=== PATIENT | female | born 1980 | race Caucasian/White ===

== ENCOUNTER 2016-10-25 08:04 | Emergency (ER) | payer OTHER ==
[~2016-10-25] VITALS: Ht 160 cm; Wt 113.0 kg
[~2016-10-25 08:04] MED LIST: ATOR40TA68 PO; IBUP-1542 PO; INSU100C SQ; LANT3I SC; MTF1000T PO
[2016-10-25 08:06] VITALS: Ht 160 cm; Wt 113.0 kg
--- NOTE | 2016-10-25 09:06 | RADRPT ---
PROCEDURE: XR Chest. CLINICAL INDICATION: Cough TECHNIQUE: A single portable view of the chest was obtained. COMPARISON: 07/29/2016 FINDINGS: The cardiomediastinal silhouette is within normal limits. The right hemidiaphragm is elevated with p robable right lower lobe atelectasis. The remaining lungs and pleural spaces are clear. The soft ti ssues and osseous structures are unremarkable. IMPRESSION: No acute cardiopulmonary disease. Elevated right hemidiaphragm with probable right lower lobe atelectasis. RPTAT: HPNM Physician Roxanne Date Time Electronically viewed and signed by Physician Roxanne on 10/25/2016 09:06 /
[2016-10-25] MEDS ORDERED: BENZ100C70 PO (09:19)
[2016-10-25] MEDS ORDERED: ALBU8.5H3 INH (09:19)
[2016-10-25] MEDS ORDERED: NPH10OT LEFT EAR (09:33)
--- NOTE | 2016-10-25 09:43 | ERD ---
ER Documentation Chief Complaint Date/Time DATE: 10/25/16 TIME: 09:35 Chief Complaint pt bib family with c/o cough and congestion with ear pain x 3 days HPI 36 year old female with a past medical history of diabetes and hypertension presents to the ED for a cough and sore throat that started 3 days ago. Patient also reports that she has been taking benazepril since 1 month ago. States that she did follow-up with her family doctor at [facility] and they stated that it is likely due to viral etiology. Reports that when she starts having her dry cough, it hurts her chest. States that she also has left ear pain. Denies any use of Q-tips. States that her blood sugar today was 124. Denies any chest pain, shortness of breath, wheezing, abdominal pain, nausea, vomiting. States that she takes insulin, metformin, Zoloft. ROS All systems reviewed and are negative except as per history of present illness. Medications Home Meds Active Scripts Neomycin/Polymyxin/Hydrocort* (Cortisporin* Otic) 10 Ml Susp, 4 DROP LEFT EAR QID for 7 Days, EA Prov:MERCEDES LU PA-C 10/25/16 Benzonatate* (Tessalon Perle*) 100 Mg Capsule, 100 MG PO Q8H Y for COUGH, #20 CAP Prov:MERCEDES LU PA-C 10/25/16 Albuterol Sulfate* (Proair HFA*) 8.5 Gm Hfa.aer.ad, 2 PUFF INH Q4, #1 INHALER Prov:MERCEDES LU PA-C 10/25/16 Ibuprofen* (Motrin*) 600 Mg Tab, 600 MG PO Q8, #30 TAB Prov:ANTHONY MONTAGUE DO 07/29/16 Reported Medications Insulin Lispro (Humalog) 100 Unit/1 Ml Cartridge, 40 UNIT SQ AC BREAKFAST 07/29/16 Insulin Glargine* (Lantus*) 100 Unit/Ml Soln, 45 UNIT SC QPM, #1 VIAL 07/29/16 Atorvastatin* (Atorvastatin*) 40 Mg Tablet, 40 MG PO QHS, #90 01/10/16 Metformin* (Glucophage*) 1,000 Mg Tablet, 1000 MG PO BID 04/23/13 Allergies Allergies: Coded Allergies: No Known Allergy (Verified , 07/29/16) PMhx/Soc History of Surgery: Yes (hysterectomy) Anesthesia Reaction: No Hx Neurological Disorder: No Hx Respiratory Disorders: No Hx Cardiac Disorders: Yes (diabetes) Hx Psychiatric Problems: Yes (anxiety) Hx Miscellaneous Medical Probl: No Hx Alcohol Use: No Hx Substance Use: No Hx Tobacco Use: No Physical Exam Vitals Vital Signs Date Time Temp Pulse Resp B/P Pulse Ox O2 Delivery O2 Flow Rate FiO2 10/25/16 08:06 98.3 72 16 128/88 98 Physical Exam Const: [id number], well-nourished. In no acute distress. Head: Atraumatic, normocephalic Eyes: Normal Conjunctiva without injection. No purulent discharge. PERRL. EOMI ENT: Normal external ear. Ear canal without erythema. Tympanic membrane pearly field without effusion or bulging. Nasal canal clear with normal turbinates. Moist oropharynx without tonsillar exudates. Non-erythematous pharynx. Uvula midline. No drooling. No trismus. Neck: Full range of motion. No meningismus. No cervical lymphadenopathy. Resp: Clear to auscultation bilaterally. No wheezing, rhonchi, rales, or crackles. No accessory muscle use. No retractions. Cardio: Regular rate and rhythm. No murmurs, rubs or gallops. Abd: Soft, non tender, non distended. Normal bowel sounds. No palpable masses. No rebound tenderness. No guarding. Skin: No petechiae or rashes Back: No midline tenderness. No CVA tenderness. Ext: No cyanosis, or edema. Neur: Awake and alert. Psych: Normal Mood and Affect Procedures/MDM This is a 36-year-old female with a past medical history of hypertension, diabetes, depression presents to the ED complaining of left ear pain, sore throat, dry cough. Patient is afebrile and nontoxic-appearing. Patient has normal vital signs. A chest x-ray was ordered to further evaluate patient. PROCEDURE: XR Chest. CLINICAL INDICATION: Cough TECHNIQUE: A single portable view of the chest was obtained. COMPARISON: 07/29/2016 FINDINGS: The cardiomediastinal silhouette is within normal limits. The right hemidiaphragm is elevated with probable right lower lobe atelectasis. The remaining lungs and pleural spaces are clear. The soft tissues and osseous structures are unremarkable. IMPRESSION: No acute cardiopulmonary disease. Elevated right hemidiaphragm with probable right lower lobe atelectasis. This patient presents to the ED with symptoms consistent with a viral acute upper respiratory infection. Patient is afebrile and has normal vital signs. Patient's physical exam include lungs which were clear to auscultation and a normal pulse oximetry. There is a low suspicion for pneumonia, pneumothorax, pulmonary embolism, epiglottitis, viral/strep pharyngitis, sinusitis, peritonsillar abscess, mastoiditis, retropharyngeal abscess, meningitis, sepsis , acute abdomen or other emergent conditions. Fluids, rest, and symptomatic treatment are recommended for the management of patient's symptoms. Patient's physical exam is consistent with otitis externa based on the tenderness to palpation of the left tragus. No purulent discharge noted. Tympanic membrane is pearly field with no signs of erythema, bulging or decreased light reflex. Patient does not have tenderness to palpation of tragus or mastoid. Low suspicion for otitis externa or mastoiditis. Patient's physical exam include lungs which were clear to auscultation and a normal pulse oximetry. Patient is speaking in full sentences. There is a low suspicion for pneumonia, epiglottitis , croup, viral/strep pharyngitis, sinusitis, peritonsillar abscess, retropharyngeal abscess, meningitis, sepsis, acute abdomen or other emergent conditions. Discharge medications: Cortisporin, Tessalon Perles, Pro-air Patient was instructed to return to the ED for any new or worsening symptoms. They should otherwise follow up with the primary care provider within 1-2 days. The patient's questions were answered at the time of discharge. Patient understood and agreed with discharge management. Departure Diagnosis: Primary Impression: Cough Additional Impression: Ear pain, left Condition: Stable Patient Instructions: Taking AYESHA Inhibitors, Uri, Viral, No Abx (Adult), External Ear Infection (Adult) Referrals: COMMUNITY CLINICS YOU HAVE RECEIVED A MEDICAL SCREENING EXAM AND THE RESULTS INDICATE THAT YOU DO NOT HAVE A CONDITION THAT REQUIRES URGENT TREATMENT IN THE EMERGENCY DEPARTMENT. FURTHER EVALUATION AND TREATMENT OF YOUR CONDITION CAN WAIT UNTIL YOU ARE SEEN IN YOUR DOCTORS OFFICE WITHIN THE NEXT 1-2 DAYS. IT IS YOUR RESPONSIBILITY TO MAKE AN APPOINTMENT FOR FOLOW-UP CARE. IF YOU HAVE A PRIMARY DOCTOR --you should call your primary doctor and schedule an appointment IF YOU DO NOT HAVE A PRIMARY DOCTOR YOU CAN CALL OUR PHYSICIAN REFERRAL HOTLINE AT IF YOU CAN NOT AFFORD TO SEE A PHYSICIAN YOU CAN CHOSE FROM THE FOLLOWING COMMUNITY [facility] [address] [facility] [address] [facility] [address] [facility] [address] [facility] [address] [facility]. [facility] [address] [facility]. [facility] YOU HAVE RECEIVED A MEDICAL SCREENING EXAM AND THE RESULTS INDICATE THAT YOU DO NOT HAVE A CONDITION THAT REQUIRES URGENT TREATMENT IN THE EMERGENCY DEPARTMENT. FURTHER EVALUATION AND TREATMENT OF YOUR CONDITION CAN WAIT UNTIL YOU ARE SEEN IN YOUR DOCTORS OFFICE WITHIN THE NEXT 1-2 DAYS. IT IS YOUR RESPONSIBILITY TO MAKE AN APPOINTMENT FOR FOLOW-UP CARE. IF YOU HAVE A PRIMARY DOCTOR --you should call your primary doctor and schedule and appointment IF YOU DO NOT HAVE A PRIMARY DOCTOR YOU CAN CALL OUR PHYSICIAN REFERRAL HOTLINE AT . IF YOU CAN NOT AFFORD TO SEE A PHYSICIAN YOU CAN CHOSE FROM THE FOLLOWING [facility]: [facility] [address] [place] [address] [facility] [address] [place] [address] [facility] [address] [place] [address] [facility] URGENT C[facility]/SPECIALTIES Additional Instructions: FOLLOW UP WITH YOUR PRIMARY CARE PHYSICIAN in 2 days for further evaluation for cough and further evaluation to possibly discontinue ayesha inhibitor (Benazapril) . Return to this facility if you are not improving as expected. MERCEDES LU PA-C Oct 25, 2016 09:43
== END 2016-10-25 09:38 | disposition home or self-care (01) ==
LOC: FTE 08:04
DX: R05 Cough (principal); H92.02 Otalgia, left ear; I10 Essential (primary) hypertension; E11.9 Type 2 diabetes mellitus without complications; Z79.4 Long term (current) use of insulin; Z79.84 Long term (current) use of oral hypoglycemic drugs
CPT/HCPCS: 71010

== ENCOUNTER 2017-01-16 15:37 | Emergency (ER) | payer OTHER ==
[~2017-01-16] VITALS: Wt 67.0 kg
[~2017-01-16 15:37] MED LIST changes: +ALBU8.5H3 INH; +BENZ100C70 PO; +NPH10OT LEFT EAR
[2017-01-16] MEDS ORDERED: ONDANSETRON (ODT) 4 MG TAB ODT STA (17:10)
[2017-01-16 17:20] LABS: URINE BLOOD (Dip) POC Negative (NEGATIVE)
[2017-01-16] MEDS ORDERED: HYDROCODONE/APAP (5/325) TAB PO ONE (17:30)
[2017-01-16 17:52] LABS: ADD SCAN DIFF NO
[2017-01-16 17:58] LABS: BASOPHILS % 0.1 % (0.0-2.0); EOSINOPHILS # 0.1 10^3/ul (0.0-0.5); EOSINOPHILS % 0.4 % (0.0-7.0); HEMATOCRIT 41.3 % (37.0-47.0); HEMOGLOBIN 13.5 g/dl (12.0-16.0); LYMPHOCYTES # 3.1 10^3/ul (0.8-2.9); LYMPHOCYTES % 21.2 % (15.0-51.0); MEAN CORPUSCULAR HGB CONC 32.7 g/dl (32.0-37.0); MEAN CORPUSCULAR VOLUME 85.5 fl (82.0-101.0); MEAN PLATELET VOLUME 11.4 fl (7.4-10.4); MONOCYTES % 6.9 % (0.0-11.0); NEUTROPHIL # 10.2 10^3/ul (1.6-7.5); NEUTROPHILS % 70.9 % (39.0-77.0); PLATELET COUNT 285 10^3/UL (140-415); RED BLOOD COUNT 4.83 10^6/ul (4.20-5.40); WHITE BLOOD COUNT 14.4 10^3/ul (4.8-10.8)
[2017-01-16 18:12] LABS: ALBUMIN 4.6 g/dl (3.3-4.9)
[2017-01-16 18:13] LABS: POTASSIUM 3.3 mmol/L (3.5-5.1)
[2017-01-16 18:15] LABS: ALBUMIN/GLOBULIN RATIO 1.21; BILIRUBIN,INDIRECT 0.6 mg/dl (0-1.1); BILIRUBIN,TOTAL 0.6 mg/dl (0.2-1.3); CREATININE 0.55 mg/dl (0.44-1.00); TOTAL PROTEIN 8.4 g/dl (6.1-8.1)
[2017-01-16 18:16] LABS: CALCIUM 9.5 mg/dl (8.4-10.2)
--- NOTE | 2017-01-16 18:58 | ERD ---
ER Documentation Chief Complaint Date/Time DATE: 01/16/17 TIME: 18:55 Chief Complaint ap with vomiting x 2 days HPI This a 36-year-old female who presents the emergency department today complaining of intermittent abdominal pain as well as some nausea and vomiting for the past week. Patient states that one week ago she had abdominal pain that went away and is now returned. States she has a history of diabetes, high blood pressure as well as a hysterectomy 8 years ago for uterine cancer. Denies any dysuria, fevers or chills, vaginal discharge. ROS All systems reviewed and are negative except as per history of present illness. Medications Home Meds Active Scripts Nitrofurantoin Monohyd Macrocr* (Macrobid*) 100 Mg Capsr, 100 MG PO BID for 7 Days, CAP Prov:PIYUSH VILLAVICENCIO PA-C 01/16/17 Ondansetron Hcl* (Zofran*) 4 Mg Tablet, 4 MG PO Q6H for NAUSEA AND/OR VOMITING, #30 TAB Prov:PIYUSH VILLAVICENCIO PA-C 01/16/17 Ibuprofen* (Motrin*) 600 Mg Tab, 600 MG PO Q6, #30 TAB Prov:PROPIYUSH VERGARA PA-C 01/16/17 Hydrocodone/Acetaminophen (Tionesta 5-325 Tablet) 1 Each Tablet, 1 TAB PO Q6H Y for PAIN, #10 TAB Prov:PIYUSH VILLAVICENCIO PA-C 01/16/17 Neomycin/Polymyxin/Hydrocort* (Cortisporin* Otic) 10 Ml Susp, 4 DROP LEFT EAR QID for 7 Days, EA Prov:MERCEDES LU PA-C 10/25/16 Benzonatate* (Tessalon Perle*) 100 Mg Capsule, 100 MG PO Q8H Y for COUGH, #20 CAP Prov:MERCEDES LU PA-C 10/25/16 Albuterol Sulfate* (Proair HFA*) 8.5 Gm Hfa.aer.ad, 2 PUFF INH Q4, #1 INHALER Prov:MERCEDES LU PA-C 10/25/16 Ibuprofen* (Motrin*) 600 Mg Tab, 600 MG PO Q8, #30 TAB Prov:ANTHONY MONTAGUE DO 07/29/16 Reported Medications Insulin Lispro (Humalog) 100 Unit/1 Ml Cartridge, 40 UNIT SQ AC BREAKFAST 07/29/16 Insulin Glargine* (Lantus*) 100 Unit/Ml Soln, 45 UNIT SC QPM, #1 VIAL 07/29/16 Atorvastatin* (Atorvastatin*) 40 Mg Tablet, 40 MG PO QHS, #90 01/10/16 Metformin* (Glucophage*) 1,000 Mg Tablet, 1000 MG PO BID 04/23/13 Allergies Allergies: Coded Allergies: No Known Allergy (Verified , 07/29/16) PMhx/Soc History of Surgery: Yes (hysterectomy) Anesthesia Reaction: No Hx Neurological Disorder: No Hx Respiratory Disorders: No Hx Cardiac Disorders: Yes (diabetes) Hx Psychiatric Problems: Yes (anxiety) Hx Miscellaneous Medical Probl: No Hx Alcohol Use: No Hx Substance Use: No Hx Tobacco Use: No Smoking Status: Never smoker Physical Exam Vitals Vital Signs Date Time Temp Pulse Resp B/P Pulse Ox O2 Delivery O2 Flow Rate FiO2 01/16/17 15:38 97.8 89 18 127/67 99 Physical Exam Const: Obese, no acute distress Head: Atraumatic Eyes: Normal Conjunctiva ENT: Normal External Ears, Nose and Mouth. Neck: Full range of motion..~ No meningismus. Resp: Clear to auscultation bilaterally Cardio: Regular rate and rhythm, no murmurs Abd: Soft, periumbilical and suprapubic tenderness non distended. Normal bowel sounds. No tenderness McBurney's. No left lower quadrant pain. Skin: No petechiae or rashes Back: No midline or flank tenderness. No CVA tenderness. Ext: No cyanosis, or edema Neur: Awake and alert Psych: Normal Mood and Affect Result Diagram: 01/16/17 [id number]/[id number] Results 24 hrs Laboratory Tests Test 01/16/17 17:19 01/16/17 17:21 White Blood Count 14.410^3/ul Red Blood Count 4.8310^6/ul Hemoglobin 13.5g/dl Hematocrit 41.3% Mean Corpuscular Volume 85.5fl Mean Corpuscular Hemoglobin 28.0pg Mean Corpuscular Hemoglobin Concent 32.7g/dl Red Cell Distribution Width 13.0% Platelet Count 03865^3/UL Mean Platelet Volume 11.4fl Neutrophils % 70.9% Lymphocytes % 21.2% Monocytes % 6.9% Eosinophils % 0.4% Basophils % 0.1% Nucleated Red Blood Cells % 0.0/100WBC Neutrophils # 10.210^3/ul Lymphocytes # 3.110^3/ul Monocytes # 1.010^3/ul Eosinophils # 0.110^3/ul Basophils # 0.010^3/ul Nucleated Red Blood Cells # 0.010^3/ul Sodium Level 144mmol/L Potassium Level 3.3mmol/L Chloride Level 100mmol/L Carbon Dioxide Level 27mmol/L Anion Gap 20 Blood Urea Nitrogen 12mg/dl Creatinine 0.55mg/dl Glucose Level 102mg/dl Calcium Level 9.5mg/dl Total Bilirubin 0.6mg/dl Direct Bilirubin 0.00mg/dl Indirect Bilirubin 0.6mg/dl Aspartate Amino Transf (AST/SGOT) 36IU/L Alanine Aminotransferase (ALT/SGPT) 53IU/L Alkaline Phosphatase 73IU/L Total Protein 8.4g/dl Albumin 4.6g/dl Globulin 3.80g/dl Albumin/Globulin Ratio 1.21 Lipase 63U/L Bedside Urine pH (LAB) 8.5 Bedside Urine Protein (LAB) Trace Bedside Urine Glucose (UA) Negative Bedside Urine Ketones (LAB) Negative Bedside Urine Blood Negative Bedside Urine Nitrite (LAB) Negative Bedside Urine Leukocyte Esterase (L Trace Current Medications Medications (Trade) Dose Ordered Sig/Alicia Route PRN Reason Start Time Stop Time Status Last Admin Dose Admin Acetaminophen/ Hydrocodone Bitart (Tionesta (5/325)) 1 tab ONCE ONCE PO 01/16/17 17:30 01/16/17 17:31 DC 01/16/17 17:18 Ondansetron HCl (Zofran Odt) 4 mg ONCE STAT ODT 01/16/17 17:10 01/16/17 17:13 DC 01/16/17 17:18 DIAGNOSTIC IMAGING REPORT Patient: CHARLOTTE COLEMAN : 1980 Age: 36 Sex: F MR #: [id number] DOS: 01/16/17 1803 Ordering MD: PIYUSH VILLAVICENCIO PA-C Location: [facility] Room/Bed: PROCEDURE: CT abdomen and pelvis without contrast. CLINICAL INDICATION: Left lower quadrant pain with nausea and vomiting TECHNIQUE: CT scan of the abdomen and pelvis without contrast was performed. Sagittal and coronal reformatted images were obtained from the axial source images. CTDI = 23.13 mGy; DLP = 1448.21 mGy-cm COMPARISON: None available. FINDINGS: Visualized lower thorax: The lung bases are clear. There is no evidence for pleural effusion. Liver, gallbladder, pancreas and spleen: Mild hepatomegaly of 20 cm maximum dimension with diffuse low attenuation of the liver consistent with hepatic steatosis, the liver contour is normal. There is no evidence for a liver mass or ductal dilatation. The gallbladder is mildly contracted but otherwise unremarkable. No common bile duct abnormality is demonstrated. The pancreas is unremarkable. The spleen is normal in size with incidental congenital splenic cleft noted. Adrenal glands and genitourinary system: The adrenal glands are normal bilaterally. The kidneys are normal and size, contour and attenuation with no evidence for masses, calculi or hydronephrosis. The ureters are unremarkable. No urinary bladder abnormality is demonstrated. The uterus is not visualized, presumably surgically removed. No ovarian or adnexal masses are evident. Gastrointestinal system: The stomach is normal in caliber with no abnormality of significance. The small bowel is normal in caliber with no ileus, obstruction or wall thickening. The appendix and surrounding fat are within the limits of normal. The colon shows no evidence for wall thickening or acute abnormality. There is no evidence for colitis or diverticulitis. Peritoneum, retroperitoneum, lymph nodes and vessels: The abdominal aorta is normal in caliber. There is no evidence for atherosclerotic calcification. The inferior vena cava is unremarkable. There is no evidence for adenopathy or mass. There is no ascites. Osseous structures and musculoskeletal findings: There is no fracture, lytic or blastic lesion. No muscular abnormality or soft tissue pathology is present. RPTAT:HJJR IMPRESSION: 1. No evidence of acute intra-abdominal or intrapelvic pathology. 2. Mild hepatomegaly and hepatic steatosis. 3. Changes of prior hysterectomy. Physician Prabha Date Time Electronically viewed and signed by Physician Prabha on 01/16/2017 20:05 JR/ CC: PIYUSH VILLAVICENCIO PA-C Procedures/MDM This a 36-year-old female who presents emergency department today complaining of intermittent abdominal pain for the past week as well as some nausea and vomiting. On physical exam she had some mild tenderness in her periumbilical and suprapubic region however patient has a history of uterine cancer and hysterectomy and therefore did obtain laboratory work as well as imaging Laboratory work shows an elevated white blood cell count of 14.4. She is not anemic. Platelets are within normal limits per electrolytes are within normal limits. Glucose within normal limits. Liver function is within normal limits. Lipase within normal limits. UA shows trace leukocyte esterase Urine test is negative CT abdomen pelvis noncontrast no evidence of acute intra-abdominal or intrapelvic pathology. There is mild hepatomegaly and hepatic steatosis. There is changes of prior hysterectomy. Patient has abdominal pain of uncertain etiology at this time however I will treat the patient for UTI given her complaints of abdominal pain or trace leukocyte Estrace. Low suspicion for acute surgical abdomen at this time. Patient's elevated white blood cell count may be reactive. Patient was given Tionesta here in the emergency department. I will give her prescription for Tionesta and Motrin and Zofran for home. Patient was given a prescription for Macrobid for her urinary tract infection. Patient was requesting medication for her diarrhea and I have explained to her that I do not feel it is best to take narcotics as well as an antidiarrheal as she may develop constipation. I explained to the patient that she could try to wait for another couple of days and see if there is any improvement and if not she may take [id number] Imodium or Pepto-Bismol only as needed At this time the patient is stable for discharge and outpatient management. Patient should follow up with their PCP in the next 1-2 days. They may return to the emergency department sooner for any persistent or worsening of symptoms. Patient and sister understood and agreed with the plan. Discussed the patient with Dr. Purvis and he is in agreement with the plan Departure Diagnosis: Primary Impression: Abdominal pain Abdominal location: periumbilical Qualified Code: R10.33 - Periumbilical abdominal pain Condition: Fair PIYUSH VILLAVICENCIO PA-C Jan 16, 2017 18:58
--- NOTE | 2017-01-16 20:06 | RADRPT ---
PROCEDURE: CT abdomen and pelvis without contrast. CLINICAL INDICATION: Left lower quadrant pain with nausea and vomiting TECHNIQUE: CT scan of the abdomen and pelvis without contrast was performed. Sagittal and coronal reformatted images were obtained from the axial source images. CTDI = 23.13 mGy; DLP = 1448.21 mGy- cm COMPARISON: None available. FINDINGS: Visualized lower thorax: The lung bases are clear. There is no evidence for pleural effusion. Liver, gallbladder, pancreas and spleen: Mild hepatomegaly of 20 cm maximum dimension with diffuse low attenuation of the liver consistent with hepatic steatosis, the liver contour is normal. There is no evidence for a liver mass or ductal dilatation. The gallbladder is mildly contracted but othe rwise unremarkable. No common bile duct abnormality is demonstrated. The pancreas is unremarkable. The spleen is normal in size with incidental congenital splenic cleft noted. Adrenal glands and genitourinary system: The adrenal glands are normal bilaterally. The kidneys are normal and size, contour and attenuation with no evidence for masses, calculi or hydronephrosis. T he ureters are unremarkable. No urinary bladder abnormality is demonstrated. The uterus is not vis ualized, presumably surgically removed. No ovarian or adnexal masses are evident. Gastrointestinal system: The stomach is normal in caliber with no abnormality of significance. The small bowel is normal in caliber with no ileus, obstruction or wall thickening. The appendix and s urrounding fat are within the limits of normal. The colon shows no evidence for wall thickening or acute abnormality. There is no evidence for colitis or diverticulitis. Peritoneum, retroperitoneum, lymph nodes and vessels: The abdominal aorta is normal in caliber. The re is no evidence for atherosclerotic calcification. The inferior vena cava is unremarkable. There is no evidence for adenopathy or mass. There is no ascites. Osseous structures and musculoskeletal findings: There is no fracture, lytic or blastic lesion. No muscular abnormality or soft tissue pathology is present. RPTAT:HJJR IMPRESSION: 1. No evidence of acute intra-abdominal or intrapelvic pathology. 2. Mild hepatomegaly and hepatic steatosis. 3. Changes of prior hysterectomy. Physician Prabha Date Time Electronically viewed and signed by Physician Prabha on 01/16/2017 20:05 /
[2017-01-16] MEDS ORDERED: HYDR-906 PO (20:18)
[2017-01-16] MEDS ORDERED: ONDA4TAB8 PO (20:18)
[2017-01-16] MEDS ORDERED: IBUP-1542 PO (20:18)
[2017-01-16] MEDS ORDERED: NITR-58 PO (20:19)
[2017-01-16 20:37] VITALS: BP 141/67; PULSE 70; RESP 16; TEMP 98.2
== END 2017-01-16 20:38 | disposition home or self-care (01) ==
LOC: FTE 15:37
DX: R10.33 Periumbilical pain (principal); R11.2 Nausea with vomiting, unspecified; E11.9 Type 2 diabetes mellitus without complications; Z79.4 Long term (current) use of insulin; Z79.84 Long term (current) use of oral hypoglycemic drugs
CPT/HCPCS: 74176; 80053; 81003; 83690; 85025; Z7610; 36415

== ENCOUNTER 2018-06-16 08:17 | Emergency (ER) | END 2018-06-16 09:19 | disposition home or self-care (01) ==

== ENCOUNTER 2018-10-03 09:41 | Emergency (ER) | payer OTHER ==
[~2018-10-03] VITALS: Ht 160 cm; Wt 120.0 kg
[~2018-10-03 09:41] MED LIST changes: +ACET500C5 PO; -ALBU8.5H3 INH; +ALBU8.5H8 INH; +BENZ-6 PO; -BENZ100C70 PO; +ELEC100080 PO; +HYDR-4011 PO; +NITR-58 PO; +ONDA4TAB8 PO
[2018-10-03 09:43] VITALS: BP 146/92; PULSE 90; RESP 21; Ht 160 cm; Wt 120.0 kg
[2018-10-03] MEDS ORDERED: D-ME118S24 PO (11:22)
[2018-10-03] MEDS ORDERED: NITR-58 PO (11:22)
--- NOTE | 2018-10-03 20:25 | ERD ---
ER Documentation Chief Complaint Chief Complaint cough and chest congestion x 5 days HPI 38-year-old female presents for cough and chest congestion times 5 days. The cough is noted to be dry and productive at times. Patient denies any fevers. She also complains of dysuria times 1 day. Also has been having some sore throat. Denies any chest pain or shortness of breath. Denies abdominal pain, nausea, vomiting. ROS All systems reviewed and are negative except as per history of present illness. Medications Home Meds Active Scripts D-Methorphan Hb/P-Epd HCl/Bpm (Xttuypxrwg-Chopaubetht-Ft Syr) 118 Ml Syrup, 5 ML PO Q4H PRN for COUGH, #1 BOTTLE Prov:SCOUT GRIFFIN DO 10/03/18 Nitrofurantoin Monohyd Macrocr* (Macrobid*) 100 Mg Capsr, 100 MG PO BID for uti for 5 Days, #10 CAP Prov:SCOUT GRIFFIN DO 10/03/18 Electrolyte,Oral (Pedialyte) 1,000 Ml Solution, 100 ML PO Q6 PRN for DIARRHEA, #1000 ML Prov:PIYUSH VILLAVICENCIOC 06/16/18 Acetaminophen* (Tylophen*) 500 Mg Capsule, 1 CAP PO Q6H PRN for PAIN AND OR ELEVATED TEMP, #30 CAP Prov:PIYUSH VILLAVICENCIO-C 06/16/18 Ondansetron Hcl* (Zofran*) 4 Mg Tablet, 4 MG PO Q6H for NAUSEA AND/OR VOMITING, #30 TAB Prov:PIYUSH VILLAVICENCIO-C 06/16/18 Nitrofurantoin Monohyd Macrocr* (Macrobid*) 100 Mg Capsr, 100 MG PO BID for 7 Days, CAP Prov:PIYUSH VILLAVICENCIO-C 01/16/17 Ondansetron Hcl* (Zofran*) 4 Mg Tablet, 4 MG PO Q6H for NAUSEA AND/OR VOMITING, #30 TAB Prov:PIYUSH VILLAVICENCIO-C 01/16/17 Ibuprofen* (Motrin*) 600 Mg Tab, 600 MG PO Q6, #30 TAB Prov:PIYUSH VILLAVICENCIOC 01/16/17 Hydrocodone/Acetaminophen ([place] 5-325 Tablet) 1 Each Tablet, 1 TAB PO Q6H PRN for PAIN, #10 TAB Prov:JAIRAEAlexei Pena PA-C 01/16/17 Neomycin/Polymyxin/Hydrocort* (Cortisporin* Otic) 10 Ml Susp, 4 DROP LEFT EAR QID for 7 Days, EA Prov:MERCEDES LU PA-C 10/25/16 Benzonatate* (Tessalon Perle*) 100 Mg Capsule, 100 MG PO Q8H PRN for COUGH, #20 CAP Prov:MERCEDES LU PA-C 10/25/16 Albuterol Sulfate* (Proair HFA*) 8.5 Gm Hfa.aer.ad, 2 PUFF INH Q4, #1 INHALER Prov:MERCEDES LU PA-C 10/25/16 Ibuprofen* (Motrin*) 600 Mg Tab, 600 MG PO Q8, #30 TAB Prov:ANTHONY MONTAGUE DO 07/29/16 Reported Medications Insulin Lispro (Humalog) 100 Unit/1 Ml Cartridge, 40 UNIT SQ AC BREAKFAST 07/29/16 Insulin Glargine* (Lantus*) 100 Unit/Ml Soln, 45 UNIT SC QPM, #1 VIAL 07/29/16 Atorvastatin* (Atorvastatin*) 40 Mg Tablet, 40 MG PO QHS, #90 01/10/16 Metformin* (Glucophage*) 1,000 Mg Tablet, 1000 MG PO BID 04/23/13 Allergies Allergies: Coded Allergies: No Known Allergy (Verified , 10/03/18) PMhx/Soc History of Surgery: Yes (hysterectomy) Anesthesia Reaction: No Hx Neurological Disorder: No Hx Respiratory Disorders: No Hx Cardiac Disorders: Yes (diabetes) Hx Psychiatric Problems: Yes (anxiety) Hx Miscellaneous Medical Probl: No Hx Alcohol Use: No Hx Substance Use: No Hx Tobacco Use: No Physical Exam Vitals Vital Signs Date Temp Pulse Resp B/P (MAP) Pulse Ox O2 O2 Flow FiO2 Time Delivery Rate 10/03/18 97.4 90 21 146/92 97 09:43 (110) Physical Exam Const: No acute distress Head: Atraumatic Eyes: Normal Conjunctiva ENT: Normal External Ears, bilateral tympanic membrane intact without erythema or bulging noted, nose and Mouth examination normal, no tonsillar swelling or exudate noted Neck: Full range of motion. No meningismus. Resp: Clear to auscultation bilaterally, no wheezing, rales, rhonchi Cardio: Regular rate and rhythm, no murmurs Skin: No petechiae or rashes Ext: No cyanosis, or edema Neur: Awake and alert Psych: Normal Mood and Affect Results 24 hrs Laboratory Tests Test 10/03/18 10:48 Bedside Urine pH (LAB) 5.5 Bedside Urine Protein (LAB) Negative Bedside Urine Glucose (UA) 0.50% Bedside Urine Ketones (LAB) Trace Bedside Urine Blood Negative Bedside Urine Nitrite (LAB) Negative Bedside Urine Leukocyte Esterase (L 1+ Procedures/MDM Medical Decision Making: Differential diagnosis includes but not limited to upper respiratory infection, pneumonia, sepsis, meningitis. Patient appeared well on physical examination, nontoxic appearing. Lungs were clear to auscultation bilaterally. There is low suspicion for pneumonia, sepsis, meningitis. Patient likely has an upper respiratory infection, likely viral. Discussed symptomatic treatment with patient who agrees with plan. Given patient's symptoms of dysuria, urine dip was done in the ER which was consistent with a urinary tract infection. Patient was given prescription for Macrobid. Patient was given supportive medications for upper respiratory infection. Patient advised to follow up with PCP in 1-2 days. Patient advised to return to ED for new or worsening symptoms. Patient stable on discharge from the ED. Disclaimer: Inadvertent spelling and grammatical errors are likely due to EHR/d ictation software use and do not reflect on the overall quality of patient care. Also, please note that the electronic time recorded on this note does not necessarily reflect the actual time of the patient encounter. Departure Diagnosis: Primary Impression: URI (upper respiratory infection) Additional Impression: UTI (urinary tract infection) Condition: Fair Patient Instructions: Understanding Urinary Tract Infections (UTIs), Preventing Common Respiratory Infections Referrals: [facility] YOU HAVE RECEIVED A MEDICAL SCREENING EXAM AND THE RESULTS INDICATE THAT YOU DO NOT HAVE A CONDITION THAT REQUIRES URGENT TREATMENT IN THE EMERGENCY DEPARTMENT. FURTHER EVALUATION AND TREATMENT OF YOUR CONDITION CAN WAIT UNTIL YOU ARE SEEN IN YOUR DOCTORS OFFICE WITHIN THE NEXT 1-2 DAYS. IT IS YOUR RESPONSIBILITY TO MAKE AN APPOINTMENT FOR FOLOW-UP CARE. IF YOU HAVE A PRIMARY DOCTOR --you should call your primary doctor and schedule an appointment IF YOU DO NOT HAVE A PRIMARY DOCTOR YOU CAN CALL OUR PHYSICIAN REFERRAL HOTLINE AT IF YOU CAN NOT AFFORD TO SEE A PHYSICIAN YOU CAN CHOSE FROM THE FOLLOWING [facility] CLINICS [facility] [address] [facility] [address] [facility]. [facility] [address] [facility] [facility] [address] [facility]. [facility] [phone] [address] [facility]. [facility] [address] Additional Instructions: Call your primary care doctor TOMORROW for an appointment during the next 1-2 days.See the doctor sooner or return here if your condition worsens before your appointment time. SCOUT GRIFFIN DO Oct 03, 2018 20:25
== END 2018-10-03 11:27 | disposition home or self-care (01) ==
LOC: FTE 09:41
DX: J06.9 Acute upper respiratory infection, unspecified (principal); N39.0 Urinary tract infection, site not specified; E11.9 Type 2 diabetes mellitus without complications; Z79.4 Long term (current) use of insulin
CPT/HCPCS: 81003; Z7502; 99282

== ENCOUNTER 2019-03-29 06:15 | Emergency (ER) | payer OTHER ==
[~2019-03-29] VITALS: Ht 160 cm; Wt 116.9 kg
[~2019-03-29 06:15] MED LIST changes: +D-ME118S24 PO
[2019-03-29 06:19] VITALS: BP 139/74; PULSE 89; RESP 18; Ht 160 cm; Wt 116.9 kg
[2019-03-29] MEDS ORDERED: IBUP-1542 PO (06:29)
[2019-03-29] MEDS ORDERED: BENZ-6 PO (06:29)
--- NOTE | 2019-03-29 07:00 | ERD ---
ER Documentation Chief Complaint Chief Complaint cough x 3 days HPI Patient is a 38-year-old female with diabetes who presents with cough for 3 days. She says "everything hurts". She is speaking in full sentences. She has no fevers. She has had no treatment as of yet. She has not called her primary doctor as of yet but she does have a primary doctor. She has a niece who is sick as well with similar symptoms. Upon review of old medical record the patient has multiple visits for various complaints. ROS All systems reviewed and are negative except as per history of present illness. Medications Home Meds Active Scripts Benzonatate* (Tessalon Perle*) 100 Mg Capsule, 100 MG PO Q8H PRN for COUGH, #30 CAP Prov:NATO MEMBRENO MD 03/29/19 Ibuprofen* (Motrin*) 600 Mg Tab, 600 MG PO Q6H PRN for PAIN AND OR ELEVATED TEMP, #30 TAB Prov:NATO MEMBRENO MD 03/29/19 D-Methorphan Hb/P-Epd HCl/Bpm (Dexhynxcma-Zbysikoockv-Yk Syr) 118 Ml Syrup, 5 ML PO Q4H PRN for COUGH, #1 BOTTLE Prov:SCOUT GRIFFIN DO 10/03/18 Nitrofurantoin Monohyd Macrocr* (Macrobid*) 100 Mg Capsr, 100 MG PO BID for uti for 5 Days, #10 CAP Prov:SCOUT GRIFFIN DO 10/03/18 Electrolyte,Oral (Pedialyte) 1,000 Ml Solution, 100 ML PO Q6 PRN for DIARRHEA, #1000 ML Prov:PIYUSH VILLAVICENCIO PA-C 06/16/18 Acetaminophen* (Tylophen*) 500 Mg Capsule, 1 CAP PO Q6H PRN for PAIN AND OR ELEVATED TEMP, #30 CAP Prov:PIYUSH VILLAVICENCIO PA-C 06/16/18 Ondansetron Hcl* (Zofran*) 4 Mg Tablet, 4 MG PO Q6H for NAUSEA AND/OR VOMITING, #30 TAB Prov:PIYUSH VILLAVICENCIO PA-C 06/16/18 Nitrofurantoin Monohyd Macrocr* (Macrobid*) 100 Mg Capsr, 100 MG PO BID for 7 Days, CAP Prov:PIYUSH VILLAVICENCIO PA-C 01/16/17 Ondansetron Hcl* (Zofran*) 4 Mg Tablet, 4 MG PO Q6H for NAUSEA AND/OR VOMITING, #30 TAB Prov:PIYUSH VILLAVICENCIO PA-C 01/16/17 Ibuprofen* (Motrin*) 600 Mg Tab, 600 MG PO Q6, #30 TAB Prov:PIYUSH VILLAVICENCIO PA-C 01/16/17 Hydrocodone/Acetaminophen ([place] 5-325 Tablet) 1 Each Tablet, 1 TAB PO Q6H PRN for PAIN, #10 TAB Prov:PIYUSH VILLAVICENCIO PA-C 01/16/17 Neomycin/Polymyxin/Hydrocort* (Cortisporin* Otic) 10 Ml Susp, 4 DROP LEFT EAR QID for 7 Days, EA Prov:MERCEDES LU PA-C 10/25/16 Benzonatate* (Tessalon Perle*) 100 Mg Capsule, 100 MG PO Q8H PRN for COUGH, #20 CAP Prov:MERCEDES LU PA-C 10/25/16 Albuterol Sulfate* (Proair HFA*) 8.5 Gm Hfa.aer.ad, 2 PUFF INH Q4, #1 INHALER Prov:MERCEDES LU PA-C 10/25/16 Ibuprofen* (Motrin*) 600 Mg Tab, 600 MG PO Q8, #30 TAB Prov:ANTHONY MONTAGUE DO 07/29/16 Reported Medications Insulin Lispro (Humalog) 100 Unit/1 Ml Cartridge, 40 UNIT SQ AC BREAKFAST 07/29/16 Insulin Glargine* (Lantus*) 100 Unit/Ml Soln, 45 UNIT SC QPM, #1 VIAL 07/29/16 Atorvastatin* (Atorvastatin*) 40 Mg Tablet, 40 MG PO QHS, #90 01/10/16 Metformin* (Glucophage*) 1,000 Mg Tablet, 1000 MG PO BID 04/23/13 Allergies Allergies: Coded Allergies: No Known Allergy (Verified , 10/03/18) PMhx/Soc History of Surgery: Yes (hysterectomy) Anesthesia Reaction: No Hx Neurological Disorder: No Hx Respiratory Disorders: No Hx Cardiac Disorders: Yes (HTN) Hx Psychiatric Problems: No Hx Miscellaneous Medical Probl: Yes (DM) Hx Alcohol Use: No Hx Substance Use: No Hx Tobacco Use: No Smoking Status: Never smoker FmHx Family History: diabetes Physical Exam Vitals Vital Signs Date Temp Pulse Resp B/P (MAP) Pulse Ox O2 O2 Flow FiO2 Time Delivery Rate 03/29/19 99.6 89 18 139/74 96 06:19 (95) Physical Exam Const: No acute distress Head: Atraumatic Eyes: Normal Conjunctiva ENT: Normal External Ears, Nose and Mouth. Neck: Full range of motion. No meningismus. Resp: Clear to auscultation bilaterally Cardio: Regular rate and rhythm, no murmurs Abd: Soft, non tender, non distended. Normal bowel sounds Skin: No petechiae or rashes Back: No midline or flank tenderness Ext: No cyanosis, or edema Neur: Awake and alert Psych: Normal Mood and Affect Procedures/MDM Patient is a 38-year-old female who presents with complaint of cough and body pain. She appears to have a viral illness at this time and I doubt serious bacterial infection such as pneumonia. I do not believe she requires imaging test to further work-up at this time and I feel the risk of doing a chest x-ray would outweigh the benefits. The patient will be discharged with a prescription for Tessalon and ibuprofen. She can follow-up with her primary doctor within 1 week. She can return for any worsening symptoms. Departure Diagnosis: Primary Impression: URI (upper respiratory infection) URI type: unspecified URI Qualified Codes: J06.9 - Acute upper respiratory infection, unspecified Condition: Fair Patient Instructions: Uri, Viral, No Abx (Adult) Referrals: Your doctor Additional Instructions: Call your primary care doctor TOMORROW for an appointment during the next 1 WEEK.Tell the community youth secretary that you were referred from this facility.See the doctor sooner or return here if your condition worsens before your appointment time. NATO MEMBRENO MD Mar 29, 2019 07:00
== END 2019-03-29 06:43 | disposition home or self-care (01) ==
LOC: FTE 06:15
DX: J06.9 Acute upper respiratory infection, unspecified (principal); I10 Essential (primary) hypertension; E11.9 Type 2 diabetes mellitus without complications; Z79.4 Long term (current) use of insulin
CPT/HCPCS: 99283